=== PATIENT | female | born 1960 | race Caucasian/White ===

== ENCOUNTER → 2017-04-14 | Outpatient (CLI) | payer OTHER, BC ==
[2016-01-25 15:02] VITALS: BMI 24.2
[~2017-04-14] MED LIST: ACET-1748 PO; ALPR-429 PO; AMBIEN POF; AMIL5TAB11 PO; BUPR-126 PO; BUPR-134 PO; BUPR-472 PO; BUPXL150 PO; CALC-741 PO; CALC-891 PO; CALC-965 PO; CAR350 PO; CIP500 PO; CIPR-344 PO; CIPR-345 PO; DOCU-202 PO; ESCI10TA8 PO; EST42T PV; HYDR-317 PO; HYDR-4225 PO; IBU800 PO; IBUP600T22 PO; IBUP800T37 PO; LEV500 PO; LEVO-85 PO; LOR5 PO; MAGN400T10; METH454P5 PO; METR-1 PO; METR-159 PO; MOD PO; MULT-1081 PO; MULT1CAP41 PO; NYST100040 PO; ONDA4TAB PO; ONDA4TAB9 SL; OXYB5TAB86 PO; OXYC-854 PO; OXYC-865 PO; PER PO; PHEN200T32 PO; POTA99TA6 PO; POTASSIUM PO; PRE10 PO; PRED20TA6 PO; PROM-110 PO; PROM12.546 PO; SULF-198 PO; TAMS0.4C25 PO; TRA50 PO; ZOLP-1 PO; [UNRECOGNIZED DRUG - CODE] IV; [UNRECOGNIZED DRUG - CODE] PO
== END ==
LOC: LAB 12:16
PROVIDERS: ATTEND Nurse Practitioner Family
DX: R05 Cough (principal); R50.9 Fever, unspecified
CPT/HCPCS: 87502

== ENCOUNTER → 2017-05-14 | Outpatient (CLI) | payer OTHER, BC ==
[2016-01-25 15:02] VITALS: BMI 24.2
--- NOTE | 2017-05-14 11:17 | RADIOLOGY IMAGING REPORT ---
FACILITY: [facility] - [place] PATIENT NAME: Frances Ghosh : 1960 MR: [id number] V: [id number] EXAM DATE: ORDERING PHYSICIAN: VASHTI ECHEVERRIA TECHNOLOGIST: Location: [facility] Patient: Frances Ghosh : 1960 Visit/Account:[id number] Date of Sevice: 05/14/2017 Technique: CHEST PA AND LAT HISTORY: Chest pain COMPARISON: None available Findings: The lungs are clear. No pleural effusion or pneumothorax. The cardiomediastinal silhouett e is normal. Impression: 1. No acute cardiopulmonary process. Report Dictated By: Héctor Rouse DO at 05/14/2017 11:12 AM Report E-Signed By: Héctor Rouse DO at 05/14/2017 11:13 AM WSN:[id number]
== END ==
LOC: RAD 10:38
PROVIDERS: ATTEND Emergency Medicine
DX: R09.89 Other specified symptoms and signs involving the circulatory and respiratory systems (principal)
CPT/HCPCS: 71046

== ENCOUNTER → 2017-06-25 | Outpatient (REF) ==
[2016-01-25 15:02] VITALS: BMI 24.2
[2017-06-25 08:55] LABS: LDL CHOLESTEROL 120 mg/dl
== END ==
DX: Z02.9 Encounter for administrative examinations, unspecified (principal)

== ENCOUNTER → 2017-07-08 | Outpatient (CLI) | payer OTHER, BC ==
[2016-01-25 15:02] VITALS: BMI 24.2
== END ==
LOC: LAB 09:57
PROVIDERS: ATTEND Nurse Practitioner Family
DX: R30.9 Painful micturition, unspecified (principal); R35.0 Frequency of micturition; B96.20 Unspecified Escherichia coli [E. coli] as the cause of diseases classified elsewhere
CPT/HCPCS: 81001; 87077; 87088; 87186

== ENCOUNTER → 2017-07-16 | Outpatient (CLI) | payer OTHER, BC ==
[2016-01-25 15:02] VITALS: BMI 24.2
[~2017-07-16] MED LIST changes: +DULO30CA6 PO
== END ==
LOC: LAB 14:53
PROVIDERS: ATTEND Nurse Practitioner Family
DX: G62.9 Polyneuropathy, unspecified (principal)
CPT/HCPCS: 36415; 82607; 82746; 83921; 84425; 85651; 86038; 86140; 86200; 86430

== ENCOUNTER → 2017-07-21 | Outpatient (CLI) | payer OTHER, BC ==
[2016-01-25 15:02] VITALS: BMI 24.2
== END ==
LOC: LAB 11:08
PROVIDERS: ATTEND Nurse Practitioner Family
DX: N39.0 Urinary tract infection, site not specified (principal); R76.8 Other specified abnormal immunological findings in serum; G62.9 Polyneuropathy, unspecified
CPT/HCPCS: 36415; 81001; 86147; 86225

== ENCOUNTER → 2017-07-24 | Outpatient (CLI) | payer OTHER, BC ==
[2016-01-25 15:02] VITALS: BMI 24.2
[~2017-07-24] MED LIST changes: +GADOBENATE 529MG/1ML 15ML VIAL IVP ONE
--- NOTE | 2017-07-24 14:13 | RADIOLOGY IMAGING REPORT ---
FACILITY: [facility] - [place] PATIENT NAME: Frances Ghosh : 1960 MR: [id number] V: [id number] EXAM DATE: ORDERING PHYSICIAN: CONSUELO CLEMENTS TECHNOLOGIST: Location: [facility] Patient: Frances Ghosh : 1960 Visit/Account:[id number] Date of Sevice: 07/24/2017 Examination: MR brain without and with contrast History: Muscle weakness Comparison: None Technique: Multiplane MR imaging was performed through the brain without and with contrast. 15 cc IV multihance was administered. Findings: Diffusion: None Ventricles: Normal Midline shift: None Extraxial fluid: None Midline craniocervical structures: Normal Parenchyma: Punctate right frontal deep white matter high signal focus, within normal limits for age. Otherwise normal. Enhancement: No pathologic enhancement Vascular flow voids: Normal Orbits and paranasal sinuses: Normal Impression: Normal brain MR without and with contrast. Report Dictated By: Marlon Adams MD at 07/24/2017 2:03 PM Report E-Signed By: Marlon Adams MD at 07/24/2017 2:08 PM WSN:[id number]
== END ==
LOC: MRI 11:52
PROVIDERS: ATTEND Nurse Practitioner Family
DX: M62.81 Muscle weakness (generalized) (principal)
CPT/HCPCS: 70553; A9577

== ENCOUNTER → 2017-07-24 | Outpatient (CLI) | payer OTHER, BC ==
[2016-01-25 15:02] VITALS: BMI 24.2
[~2017-07-24] MED LIST changes: -GADOBENATE 529MG/1ML 15ML VIAL IVP ONE
== END ==
LOC: LAB 08:20
PROVIDERS: ATTEND Nurse Practitioner Family
DX: M62.81 Muscle weakness (generalized) (principal)

== ENCOUNTER → 2017-07-27 | Outpatient (CLI) | payer OTHER, BC ==
[2016-01-25 15:02] VITALS: BMI 24.2
[2017-07-27 08:38] LABS: PLATELET COUNT, AUTOMATED 260 K/uL (150-450)
== END ==
LOC: LAB 08:13
PROVIDERS: ATTEND Nurse Practitioner Family
DX: R74.8 Abnormal levels of other serum enzymes (principal); G62.9 Polyneuropathy, unspecified
CPT/HCPCS: 36415; 82607; 82746; 85025

== ENCOUNTER → 2017-12-04 | Outpatient (CLI) | payer OTHER, BC ==
[2016-01-25 15:02] VITALS: BMI 24.2
== END ==
LOC: LAB 07:26
PROVIDERS: ATTEND Family Medicine
DX: R30.0 Dysuria (principal)
CPT/HCPCS: 81001

== ENCOUNTER → 2017-12-08 | Outpatient (CLI) | payer OTHER, BC ==
[2016-01-25 15:02] VITALS: BMI 24.2
--- NOTE | 2017-12-08 08:29 | RADIOLOGY IMAGING REPORT ---
FACILITY: [facility] - [place] PATIENT NAME: Frances Ghosh : 1960 MR: [id number] V: [id number] EXAM DATE: ORDERING PHYSICIAN: VASHTI ECHEVERRIA TECHNOLOGIST: Location: [facility] [place] Patient: Frances Ghosh : 1960 Visit/Account:[id number] Date of Sevice: 12/08/2017 HAND COMPLETE RIGHT HISTORY: Fell on right hand Thursday. Right hand pain ADDITIONAL HISTORY: None. COMPARISON: None. FINDINGS: 3 views were obtained of the right hand. Alignment is anatomic. Joint spaces are well-maintained. There is mild soft tissue swelling over the dorsal surface of the metacarpals. There is no fracture identified. No significant osteophytes or erosions. There is mild periarticular osteopenia. IMPRESSION: Mild soft tissue swelling without evidence of fracture. Report Dictated By: Lily Goodman MD at 12/08/2017 8:23 AM Report E-Signed By: Lily Goodman MD at 12/08/2017 8:25 AM WSN:[email or web address]
== END ==
LOC: RAD 07:25
PROVIDERS: ATTEND Emergency Medicine
DX: R22.31 Localized swelling, mass and lump, right upper limb (principal); W19.XXXA Unspecified fall, initial encounter

== ENCOUNTER → 2018-01-28 | Outpatient (CLI) | payer OTHER, BC ==
[2016-01-25 15:02] VITALS: BMI 24.2
== END ==
LOC: LAB 13:14
PROVIDERS: ATTEND Nurse Practitioner Family
DX: R30.0 Dysuria (principal); R30.9 Painful micturition, unspecified
CPT/HCPCS: 81001; 87088

== ENCOUNTER → 2018-03-05 | Outpatient (REF) ==
[2016-01-25 15:02] VITALS: BMI 24.2
[~2018-03-05] MED LIST changes: -METR-159 PO; +METR250T8 PO
[2018-03-05 09:02] LABS: LDL CHOLESTEROL 136 mg/dl
== END ==
DX: Z02.9 Encounter for administrative examinations, unspecified (principal)

== ENCOUNTER → 2018-05-20 | Outpatient (CLI) | payer OTHER, BC ==
[2016-01-25 15:02] VITALS: BMI 24.2
[~2018-05-20] MED LIST changes: +CLOB15CR22 TP; +CLOB15OI16 TP; +ESTR10TA4 VG; +GABA-549 PO; +LOR1 PO
== END ==
LOC: LAB 06:40
PROVIDERS: ATTEND Emergency Medicine
DX: R30.9 Painful micturition, unspecified (principal); R82.998 Other abnormal findings in urine
CPT/HCPCS: 81001; 87088

== ENCOUNTER → 2018-05-20 | Outpatient (CLI) | payer OTHER, BC ==
[2016-01-25 15:02] VITALS: BMI 24.2
--- NOTE | 2018-05-20 09:27 | RADIOLOGY IMAGING REPORT ---
FACILITY: [facility] - [place] PATIENT NAME: Frances Ghosh : 1960 MR: [id number] V: [id number] EXAM DATE: ORDERING PHYSICIAN: CONSUELO CLEMENTS TECHNOLOGIST: Location: [facility] Patient: Frances Ghosh : 1960 Visit/Account:[id number] Date of Sevice: 05/20/2018 DEXA Scan 05/20/2018 9:00 AM HISTORY: Osteopenia Comparison: DEXA scan from 11/19/2015. LUMBAR SPINE: The bone mineral density (BMD) measured from L1-L4 correlates with a Z-score of -0.6 and a T-score of -1.3 which is mildly osteopenic as defined by the World Health Organization. The corresponding risk of fracture in the lumbar spine is increased 2-3 times compared with a young adult reference populat ion. This value has decreased by 3.3 % since the prior study. More than 5% change is considered sig nificant. HIP: Bone mineral density (BMD) measured in the Left total hip region correlates with a Z-score -0.3 and a T-score of -0.9 which is within lower normal range as defined by the World Health Organization. The corresponding risk of fracture in the hip is increase just under 2 times compared with a young adult reference population. This value has decreased by 0.1 % since the prior study. More than 5% change is considered significant. Bone mineral density (BMD) measured in the Femoral Neck region measures 0.936 g/cm2. T-score is -0. 7. IMPRESSION: 1. Lumbar spine: Mild osteopenia. There has been No significant change in the bone mineral density since the previous exam. 2. Left Total Hip: Within lower normal range. There has been No significant change in the bone mine ral density since the previous exam. 3. Femoral Neck: Bone Mineral Density is 0.936 g/cm2. Within lower normal range. The next DEXA scan of this patient should include the following sites: L1-L4 and the left hip. FRAX? WHO Fracture Risk Assessment Tool link: <http://www.shef.ac.uk/FRAX/tool.jsp?locationValue=9> PLEASE NOTE: 1) The World Health Organization defines low BMD as follows: T-score Normal > -1 Osteopenia < -1 and > -2.5 Osteoporosis < -2.5 without fractures Established osteoporosis < -2.5 with fractures 2) In general, you may wish to consider: Diagnosis Treatment Follow-up DEXA Normal BMD Prevention 2-3 years Osteopenia Prevention/therapy 1-2 years Osteoporosis Therapy Yearly 3) Fracture risk estimated from the T-score is more accurate for vertebral fractures (often spontane ous) than for hip fractures. Report Dictated By: Emile Eastman MD at 05/20/2018 9:21 AM Report E-Signed By: Emile Eastman MD at 05/20/2018 9:23 AM WSN:[email or web address]
--- NOTE | 2018-05-26 16:43 | RADIOLOGY IMAGING REPORT ---
FACILITY: [facility] - [place] PATIENT NAME: CHARITY MENA : [id number] MR: [id number] V: [id number] EXAM DATE: [id number] ORDERING PHYSICIAN: CONSUELO CELMENTS TECHNOLOGIST: Lauryn Self PROCEDURE:BILATERAL DIGITAL SCREENING MAMMOGRAM WITH CAD ASSISTED INTERPRETATION & 3D TOMOSYNTHESIS COMPARISON:Prior mammograms. INDICATIONS:SCREENING FINDINGS: The breasts are heterogeneously dense. A focal asymmetry is present in the Right upper outer quadrant, unchanged. A small nodular density is present in the central Right breast, unchanged. Other benign appearing asymmetries are scattered bilaterally, unchanged. DIAGNOSTIC CATEGORY 2--BENIGN FINDING. RECOMMENDATIONS: ROUTINE MAMMOGRAM AND CLINICAL EVALUATION IN 1YR. IMPRESSION: BIRADS 2: Benign finding. Dictated by: Laurent Linares M.D. on 05/21/2018 at 8:34 Transcribed by: ALLEY on 05/21/2018 at 9:46 Approved by: Solange Duncan M.D. on 05/26/2018 at 16:43 [facility]
== END ==
LOC: MAMO 00:44
PROVIDERS: ATTEND Nurse Practitioner Family
DX: Z12.31 Encounter for screening mammogram for malignant neoplasm of breast (principal); M85.88 Other specified disorders of bone density and structure, other site
CPT/HCPCS: 77063; 77067; 77080